=== PATIENT | female | born 1970 | race Caucasian/White ===

== ENCOUNTER 2022-09-05 09:50 | Emergency (ER) | payer OTHER, SELFPAY ==
[2022-09-05 09:57] VITALS: BP 124/83; PULSE 93; RESP 20; TEMP 37; O2SAT 97; BMI 34.9
--- NOTE | 2022-09-05 10:12 | ED_ITS ---
HPI - Wound/Laceration General Chief Complaint: Wound/Laceration Stated Complaint: UPPER EXTREMITY INJURY LEFT HAND Time Seen by Provider: 09/05/22 10:12 Source: patient Mode of arrival: walk-in Limitations: no limitations History of Present Illness HPI narrative: pt presents emergency department complaining of left hand laceration. Patient states last night she was drinking. She was clearly in a Andrey jar and sustained a laceration to the left palmar surface. It is 1 cm jagged and irregular. She did clinic here at home washing it and went to sleep and started up this morning and noted that there was some bleeding so she came in for evaluation. Patient is not sure if there is some glass left and the wound however she states that it just hurts but it doesn't feel like there something and it. Her tetanus is up-to-date. She has not taking anything at home for pain. He denies any numbness. She denies any difficulty moving her fingers. Related Data Home Medications Medication Instructions Recorded Confirmed albuterol sulfate 90 mcg/actuation inhalation Q4H PRN shortness of 09/05/22 aerosol inhaler (Ventolin HFA) breath or wheezing cholecalciferol (vitamin D3) 50 50 mcg PO DAILY 09/05/22 09/05/22 mcg (2,000 unit) capsule ciprofloxacin HCl 500 mg tablet 500 mg PO Q12H 09/05/22 09/05/22 fluticasone fur. 200 mcg-umeclid 1 inh inhalation Q24H 09/05/22 09/05/22 62.5 mcg-vilant 25 mcg inhalat.powder (Trelegy Ellipta) gabapentin 800 mg tablet 800 mg PO TID 09/05/22 09/05/22 hydrocodone 5 mg-acetaminophen 325 1 tab PO Q6H 09/05/22 09/05/22 mg tablet lisinopril 20 mg tablet 20 mg PO DAILY 09/05/22 09/05/22 metformin 500 mg tablet 500 mg PO BID 09/05/22 09/05/22 metronidazole 500 mg tablet 500 mg PO TID 09/05/22 09/05/22 omeprazole 40 mg capsule,delayed 40 mg PO DAILY 09/05/22 09/05/22 release ondansetron 4 mg disintegrating 4 mg translingual Q8H PRN nausea 09/05/22 09/05/22 tablet and vomiting solifenacin 10 mg tablet 10 mg PO DAILY 09/05/22 09/05/22 valacyclovir 1 gram tablet 1,000 mg PO DAILY 09/05/22 09/05/22 Allergies Allergy/AdvReac Type Severity Reaction Status Date / Time meperidine [From Demerol] Allergy Severe hives Verified 09/05/22 09:56 Review of Systems ROS Narrative ROS: Unless otherwise stated in this report the patient's positive and negative responses for review of systems for constitutional, eyes, ENT, cardiovascular, respiratory, gastrointestinal, neurological, , musculoskeletal and integument systems and related systems to the presenting problem are either stated in the history of present illness or were not pertinent or were negative for the symptoms and/or complaints related to the presenting medical problem. [facility] Social History Smoking status: Heavy tobacco smoker Exam Narrative Exam Narrative: Nurses notes and vital signs reviewed and patient is not hypoxic. General: Nontoxic, Well-appearing and in no apparent distress. Skin: Warm, dry, no pallor noted. No Rash Head: Normocephalic, atraumatic. Neck: Supple, non-tender. Eye: Pupils are equal, round and EOMI. No scleral icterus. Chest Wall: no tenderness Back: No midline thoracic or lumbar vertebral tenderness. No CVA tenderness Musculoskeletal: 1 cm laceration to the left mid palmar surface. Jagged, irregular, with minimal gaping. No foreign body noted. Full range of motion. Capillary refill is brisk. Patient is able to oppose all digits with thumb. Normal sensation to the distal thumb, middle finger, pinky.normal ROM, no calf or popliteal tenderness, no lower extremity edema/swelling GI: Abdomen is soft, non-distended. Normal bowel sounds. No masses appreciated. No tenderness to palpation. No rebound, guarding, or rigidity noted. Neurological: A&O x4. No cranial nerve dysfunction observed. No truncal ataxia. Moves all extremities. Sensation intact. Psychiatric: Cooperative and interactive. Normal mood and affect. Constitutional Vital Signs - 24 hr 09/05/22 09:57 Temperature 98.6 F Pulse Rate [Monitor] 93 H Respiratory Rate 20 Blood Pressure [Left Arm] 124/83 H Pulse Oximetry 97 Oxygen Delivery Method Room Air Course Vital Signs Vital signs: Vital Signs Temperature 98.6 F 09/05/22 09:57 Pulse Rate 93 H 09/05/22 09:57 Respiratory Rate 20 09/05/22 09:57 Blood Pressure 124/83 H 09/05/22 09:57 Pulse Oximetry 97 09/05/22 09:57 Oxygen Delivery Method Room Air 09/05/22 09:57 Temperature 98.6 F 09/05/22 09:57 Pulse Rate 93 H 09/05/22 09:57 Respiratory Rate 20 09/05/22 09:57 Blood Pressure 124/83 H 09/05/22 09:57 Pulse Oximetry 97 09/05/22 09:57 Oxygen Delivery Method Room Air 09/05/22 09:57 MDM - Wound/Laceration MDM Narrative Medical decision making narrative: As with patient the need to do an x-ray to rule out foreign body. The patient at this time states she doesn't feel like there is anything in there and she has declined because she needs to go somewhere. Wound care was provided to the patient. Instructions were provided to patient. She would have Steri-Strips applied. Signs of infection. No additional indication for emergent studies at this time. I answered all questions. Discussed discharge instructions including standard anticipatory guidance and what should prompt a return to the emergency department, including if they get worse are not getting better or develops any new or concerning symptoms. I've given them specific time frame in which to follow-up, and who to follow-up with. The patient demonstrates understanding. Patient is nontoxic and stable for discharge with outpatient follow-up. This note was created with the assistance of a speech recognition program. Although the intention is to generate documents that actually reflects the content of the visit, no guarantees can be provided that every mistake has been identified and corrected by editing. Differential Diagnosis Differential diagnosis: Likely laceration and other Medical Records Attestation: I reviewed the patient's medical records. Lab Data Attestation: I reviewed the patient's lab results. Discharge Plan Discharge Chief Complaint: Wound/Laceration Clinical Impression: Laceration Patient Disposition: Home, Self-Care Time of Disposition Decision: 11:15 Condition: Good Prescriptions / Home Meds: No Action albuterol sulfate [Ventolin HFA] 90 mcg/actuation HFA aerosol inhaler inhalation Q4H PRN (Reason: shortness of breath or wheezing) cholecalciferol (vitamin D3) 50 mcg (2,000 unit) capsule 50 mcg PO DAILY ciprofloxacin HCl 500 mg tablet 500 mg PO Q12H Trelegy Ellipta 200-62.5-25 mcg blister with device 1 inh INHALATION Q24H gabapentin 800 mg tablet 800 mg PO TID hydrocodone-acetaminophen 5-325 mg tablet 1 tab PO Q6H lisinopril 20 mg tablet 20 mg PO DAILY metformin 500 mg tablet 500 mg PO BID metronidazole 500 mg tablet 500 mg PO TID omeprazole 40 mg capsule,delayed release(DR/EC) 40 mg PO DAILY ondansetron 4 mg tablet,disintegrating 4 mg translingual Q8H PRN (Reason: nausea and vomiting) solifenacin 10 mg tablet 10 mg PO DAILY valacyclovir 1 gram tablet 1,000 mg PO DAILY Instructions: Laceration (ED) Stand Alone Forms: Portal Instructions Referrals: Shaikh Mabry MD [Primary Care Provider] - 1 week
--- NOTE | 2022-09-05 11:00 | PC.NURSE ---
in with pt 2 steri strips applied well approximated laceration, no active bleeding, applied telfa, kerlix and secured. pt educated to keep clean and dry for 7 days or until steri strips fall off. pt given extra steri strips and dressing supplied for home use educated and demonstrated dressing. msp's intact to all left fingers denies any further needs questions or concerns at this time. Dru Mock RN
== END 2022-09-05 11:35 | disposition home or self-care (01) ==
PROVIDERS: Emergency Provider Emergency Medicine; PCP Internal Medicine
DX: S61.412A Laceration without foreign body of left hand, initial encounter (principal); W26.8XXA Contact with other sharp object(s), not elsewhere classified, initial encounter; F17.210 Nicotine dependence, cigarettes, uncomplicated; Z79.899 Other long term (current) drug therapy; Z79.84 Long term (current) use of oral hypoglycemic drugs
CPT/HCPCS: 99282

== ENCOUNTER 2023-01-22 11:54 | Outpatient (OUT) | payer OTHER, SELFPAY ==
--- NOTE | 2023-01-22 13:24 | CT_ITS ---
The [address] [address] Patient Name: JAN GRACIA MRN: [id number] date: 1970 Sex: F Assigned Patient Location: CT Current Patient Location: CT Accession/Order Number: [id number] Exam Date: 01/22/2023 13:08 Report Date: 01/22/2023 14:55 At the request of: NON-STAFF PHYSICIAN Procedure: CT abdomen pelvis w con EXAM: CT abdomen pelvis w con HISTORY: Diarrhea R19.7 COMPARISON: None. TECHNIQUE: Axial CT images were obtained of the abdomen and pelvis with intravenous contrast. Multiplanar reconstructions were performed. ABDOMEN/PELVIS FINDINGS: Lower Chest: Unremarkable. Liver: Normal enhancement and contour. Biliary/Gallbladder: Unremarkable. Pancreas: Unremarkable. Spleen: Unremarkable. Adrenal Glands: Unremarkable. Kidneys: Unremarkable. Gastrointestinal/Peritoneum: High density contrast present throughout the colon which obscures evaluation. Enteric contrast for the purpose of the CT exam is seen throughout the small intestinal loops. The appendix is unremarkable. No free air or free fluid. Vascular: Mild scattered atherosclerotic calcifications are present. Lymph Nodes: No enlarged lymph nodes by CT size criteria. Pelvic Organs: Unremarkable. Bladder: Unremarkable. Bones: No acute osseous abnormality. Moderate degenerative disc disease is present at L5-S1. Soft tissues: Unremarkable. CT/CT abdomen pelvis w con IMPRESSION: 1. No acute abnormality of the abdomen and pelvis. 2. Unremarkable appearance of the appendix. 3. Limited evaluation of the colon due to the presence of very high density contrast. Electronically authenticated by: ISABELLE TEJEDA Date: 01/22/2023 14:55
== END 2023-01-22 11:55 | disposition home or self-care (01) ==
LOC: CT 11:54
PROVIDERS: PCP Internal Medicine
DX: R19.7 Diarrhea, unspecified (principal)
CPT/HCPCS: 74177; Q9967

== ENCOUNTER 2023-02-13 10:02 | Outpatient (OUT) | payer OTHER, SELFPAY ==
[2023-02-13 10:59] LABS: Basophils Percent Auto 0.2 % (0.2-2.0); Eosinophils Absolute Auto 0.1 10^3/uL (0.0-0.7); Eosinophils Percent Auto 1.2 % (0.9-7.0); Hematocrit 36.9 % (36.0-48.0); Immature Granulocytes Abs Auto 0.04 10^3/uL (0.00-0.03); Immature Granulocytes Pct Auto 0.5 % (0.0-0.5); Lymphocytes Absolute Auto 2.6 10^3/uL (1.2-3.8); Lymphocytes Percent Auto 29.6 % (20.5-60.0); Mean Corpuscular HGB Conc 32.5 g/dL (29.9-35.2); Mean Corpuscular Hemoglobin 32.8 pg (26.7-34.0); Mean Corpuscular Volume 100.8 fL (81.0-99.0); Mean Platelet Volume 11.7 fL (9.5-13.5); Monocytes Absolute Auto 0.4 10^3/uL (0.3-0.8); Monocytes Percent Auto 4.5 % (1.7-12.0); Neutrophils Absolute Auto 5.7 10^3/uL (1.4-6.5); Platelet Count 239 10^3/uL (150-450); Red Blood Count 3.66 10^6/uL (4.20-5.40); Red Cell Distribution Width 12.6 % (11.0-15.0); White Blood Count 8.9 10^3/uL (4.0-11.0)
[2023-02-13 11:20] LABS: Estimated Average Glucose 103 mg/dL; Glycohemoglobin A1C 5.2 % (4.5-6.2)
[2023-02-13 13:59] LABS: Alanine Aminotransferase 22 U/L (14-59); Albumin Globulin Ratio 1.1; Albumin Level 3.4 g/dL (3.4-5.0); Alkaline Phosphatase 112 U/L (46-116); Anion Gap 13.2; Aspartate Amino Transferase 10 U/L (15-37); BUN Creatinine Ratio 10.7; Bilirubin Total 0.2 mg/dL (0.2-1.0); Calcium 8.5 mg/dL (8.5-10.1); Carbon Dioxide 27.2 mmol/L (21.0-32.0); Chloride 107 mmol/L (98-107); Estimated GFR (African America >60 (>=60); Estimated GFR (Non-African Ame >60 (>=60); Globulin 3.2 g/dL; Glucose 108 mg/dL (74-106); Potassium 3.4 mmol/L (3.5-5.1); Sodium 144 mmol/L (136-145); Total Protein 6.6 g/dL (6.4-8.2)
[2023-02-14 09:07] LABS: HIV Ab/p24 Ag Screen Non Reactive (Non Reactive)
== END 2023-02-13 10:03 | disposition home or self-care (01) ==
LOC: LAB 10:04
PROVIDERS: PCP Internal Medicine; Visit Provider Internal Medicine
DX: B37.0 Candidal stomatitis (principal); I10 Essential (primary) hypertension; Z13.1 Encounter for screening for diabetes mellitus
CPT/HCPCS: 36415; 80053; 83036; 85025; 87389